=== PATIENT | female | born 1945 | race Caucasian/White ===

== ENCOUNTER → 2017-12-25 15:31 | Outpatient (CLI) | payer BC, SELFPAY | PROVIDERS: Family Provider Internal Medicine; PCP Internal Medicine; Visit Provider Family Medicine | DX: K59.00 Constipation, unspecified (principal); R10.9 Unspecified abdominal pain | CPT/HCPCS: 82274 ==

== ENCOUNTER 2018-01-05 07:05 | Day surgery (SDC) | payer BC, SELFPAY ==
[2018-01-05] VITALS (8 sets, daily range): BP systolic 86–117; BP diastolic 44–55; PULSE 63–81; RESP 16; TEMP 36.4–36.9; O2SAT 95–100; BMI 21.6
--- NOTE | 2018-01-05 | COLBX_PTH ---
PATIENT: JOSE LUIS STANFORD LOC: EN U#:[id number] AGE/SX: 72/F ROOM: RE01/05/[address]: Dr. Colton Wolfe MD : 1945 BED: DIS: 01/05/2018 SPEC #: [id number] RECD: 01/05/18 11:28 STATUS: HELIO PEACE #: [id number] KELLY: 01/05/18 00:[address]: Colton Wolfe DEPT: SURGICAL PATHOLOGY RECD BY: Brian Cannon ENTERED: 01/05/18 12:00 SP TYPE: COLON BX OTHR DR: Dr. Francy Regan MD Tissues: COLON BIOPSY Procedures: Surgery Specimen Level IV HEADER OPERATION: Colonoscopy PRE-OP DIAGNOSIS: Generalized abdominal pain TISSUE SUBMITTED: Left colonic biopsy MICROSCOPIC DIAGNOSIS Left colon, biopsy: Fragments of colonic mucosa with mild increase of intraepithelial lymphocytes consistent with microscopic (lymphocytic) colitis. SJ:satish 01/06/18 COMMENT Clinical correlation and appropriate follow up are necessary. Case has been reviewed in consultation with Dr. Preston who concurs with the above diagnosis. IDC:AM MICROSCOPIC DESCRIPTION Slides are reviewed. GROSS DESCRIPTION Received in fixative is one container labeled with the patient's name and designated left colonic biopsy. The specimen consists of multiple irregular fragments of light sanford soft tissue that in aggregate measure 1.2 x 0.6 x 0.1 cm. The specimen is totally submitted in one cassette. / SJ:rg 01/05/18 TC:3 CPT: 45205
--- NOTE | 2018-01-05 08:45 | PCM.OPRPT ---
Problem List (1) Screening for intestinal cancer Status: Acute (2) Abdominal pain Status: Acute Qualifiers: Abdominal location: left lower quadrant Qualified Code(s): R10.32 - Left lower quadrant pain Report of Operation Date of Procedure: 01/05/18 Pre-Operative Diagnosis: Screening for intestinal malignancy and left lower quadrant abdominal pain Post-Operative Diagnosis: Extraordinarily tortuous colon, no acute findings Surgery/Procedure Performed:: Colonoscopy with random left colonic biopsies Description of Surgical Findings:: Timeout and informed consent was obtained. 72-year-old female who is never had a previous colonoscopy was taken to the endoscopy suite. She was placed a left lateral decubitus position. Throughout the procedure in aliquots she received total 100 mg Demerol and 3.5 mg of Versed is intravenous sedation. Digital rectal exam performed. Normal at anal tone. Minimal hemorrhoidal changes. Flexible colonoscope inserted the rectum advanced through a very tortuous sigmoid and descending colon. The scope was then advanced through the transverse colon with transabdominal pressure slowly progressively advanced to the hepatic flexure. I was able then to transgress the hepatic flexure and gain access to the cecum. Bowel prep was good there is still liquid stool located throughout the colon which required constant aspiration. The cecum ileocecal valve however was nicely visualized. The scope was carefully withdrawn from the ascending transverse descending and sigmoid colon. There were no acute abnormalities noted other than a very tortuous colon. Particularly the left colon was carefully inspected. Random biopsies were obtained of the sigmoid and rectum. There was no evidence of acute inflammatory change. There is no visualized diverticular disease. The scope was retroflexed within the rectum anorectal verge inspected this also did not appear to be remarkable. Excess fluid and air was aspirated free the procedure was completed with the patient tolerating it well. The biopsies were performed with cold forceps Impression Very tortuous colon. No acute findings visualized. Biopsies from the sigmoid and rectum pending. Next screening colonoscopy in 10 years Etiology of the patient's left lower quadrant pain not determined on this examination and does not seem to be consistent with colonic pathology. Preoperative stool Hemoccult was negative for blood Cc: Dr. Alvarado Medications were given at 0818. Procedure started 0820. The cecum was reached at 0834.3. The procedure was completed at 0843. Colton Wolfe M.D., F.A.C.S. Type of Anesthesia:: IV Sedation
--- NOTE | 2018-01-05 09:28 | SUR.PHASEII ---
PT TO HAVE CT OF ABD AND PELVIS WITH IV AND ORAL CONTRAST, CT ABLE RADHA PT TODAY, SHE IS DRINKING CONTRAST DIRECTED
== END 2018-01-05 10:39 | disposition home or self-care (01) ==
LOC: EN 07:05 → AC 07:07
PROVIDERS: Family Provider Internal Medicine; PCP Internal Medicine; Visit Provider Surgery
PROC: 0DJD8ZZ Inspection of Lower Intestinal Tract, Via Natural or Artificial Opening Endoscopic (ICD-10-PCS; CPT 45378; principal; 2018-01-05 07:55)
DX: Z12.10 Encounter for screening for malignant neoplasm of intestinal tract, unspecified (principal); K52.832 Lymphocytic colitis; K56.2 Volvulus; R10.32 Left lower quadrant pain; L71.9 Rosacea, unspecified; H35.30 Unspecified macular degeneration; Z85.42 Personal history of malignant neoplasm of other parts of uterus; Z79.899 Other long term (current) drug therapy
CPT/HCPCS: 45380; 88305; 99152; 99153; J7030; J7120

== ENCOUNTER → 2018-01-05 10:41 | Outpatient (CLI) | payer BC, SELFPAY ==
--- NOTE | 2018-01-05 10:57 | CT_ITS ---
STUDY: CT ABDOMEN AND PELVIS WITHOUT CONTRAST REASON FOR EXAM: Female, 72 years old. Abdominal pain and bloating. RADIATION DOSAGE (If Supplied By Facility): CTDIvol = ( 9.08 ) mGy, DLP = ( 386.21 ) mGycm TECHNIQUE: Transaxial images were obtained from the dome of the diaphragm to the symphysis pubis without oral contrast, and without intravenous contrast. Sagittal and coronal images were reconstructed. Individualized dose optimization techniques were used for this CT. COMPARISON: None. FINDINGS: Minimal degree of increased linear markings at the lung bases suggestive of either mild linear scarring or linear atelectasis. The visualized portions of the heart are within normal limits. There is a 7.1 mm cyst in the anterior right lobe of the liver adjacent to the dome. Sludge and possible tiny gallstones within the gallbladder lumen. Normal spleen. There is a 1.6 cm x 1.9 cm x 1.8 cm hypodense rounded mass in the body of the pancreas. A neoplastic process should be ruled out. Normal bilateral adrenal glands. Normal right kidney. Normal left kidney. Normal visualized stomach. Normal small intestine. There is circumferential wall thickening of the rectum with narrowing of the lumen. Moderate amount of fecal material is seen in the colon. There is non-visualization of the appendix. Normal abdominal aorta. Normal inferior vena cava. Normal retroperitoneum. Normal urinary bladder. There is absence of the uterus consistent with a prior hysterectomy. Normal abdominal wall. There are diffuse degenerative changes of the visualized lumbar spine. Minimal anterior listhesis of L3 on L4. CT/Abdomen/Pelvis without Cont IMPRESSION: 1.6 cm x 1.9 cm x 1.8 cm hypodense mass in the body of the pancreas. A neoplastic process should be ruled out. Sludge and possible tiny gallstones within the gallbladder lumen. Circumferential wall thickening of the rectum. Electronically Signed: Corey Concepcion MD at 14:13 EDT Tel [phone], Service support ,
== END ==
PROVIDERS: Family Provider Internal Medicine; PCP Internal Medicine; Visit Provider Surgery
DX: K86.9 Disease of pancreas, unspecified (principal); K83.9 Disease of biliary tract, unspecified; K62.89 Other specified diseases of anus and rectum
CPT/HCPCS: 74176

== ENCOUNTER → 2018-01-07 15:06 | Outpatient (CLI) | payer BC, SELFPAY ==
--- NOTE | 2018-01-07 15:08 | BI_ITS ---
MAMMOGRAPHY - BILATERAL SCREENING REASON FOR EXAM: Female, 72 years old. Routine annual screening examination. PERTINENT HISTORY: Non-contributory. History of endometrial carcinoma. TECHNIQUE: Digital bilateral breast clementina (3D mammographic acquisition) in the CC and MLO projections. 2-D mediolateral oblique (MLO) and craniocaudad (CC) views of both breasts were obtained. CAD: Full Field Digital Mammography with Computer Added Detection was performed. COMPARISON: None. Baseline examination. FINDINGS: Breast Composition: The breasts are heterogeneously dense, which may obscure small masses. There are no dominant masses or suspicious calcifications. No other significant abnormalities are identified. BI/SCREENING MAMM (CAD), BILAT IMPRESSION: Negative screening mammogram. Yearly followup mammogram recommended. (A) ASSESSMENT CATEGORY: BIRADS Category 1: Negative. A letter regarding these results will be sent to the patient by the facility within 30 days. Approximately 10% of breast cancers are not detected by mammography. A normal mammogram should not delay biopsy of a clinically suspicious abnormality. [id number] Electronically Signed: Corey Concepcion MD at 8:05 EDT Tel [phone], Service support ,
== END ==
PROVIDERS: Family Provider Internal Medicine; PCP Internal Medicine; Visit Provider Obstetrics & Gynecology
DX: Z12.31 Encounter for screening mammogram for malignant neoplasm of breast (principal)
CPT/HCPCS: 77063; 77067

== ENCOUNTER → 2019-11-16 | Outpatient (CLI) | payer BC, SELFPAY | END | disposition home or self-care (01) | LOC: LABSPEC 15:41 | PROVIDERS: PCP Internal Medicine; Referring Provider Dermatology; Visit Provider Dermatology | DX: L30.8 Other specified dermatitis (principal); B95.61 Methicillin susceptible Staphylococcus aureus infection as the cause of diseases classified elsewhere; L40.0 Psoriasis vulgaris; L20.84 Intrinsic (allergic) eczema | CPT/HCPCS: 87070; 87077; 87186; 87205 ==

== ENCOUNTER → 2020-11-23 14:02 | Outpatient (CLI) | payer BC, SELFPAY ==
--- NOTE | 2020-11-23 15:09 | BI_ITS ---
MAMMOGRAPHY - BILATERAL SCREENING REASON FOR EXAM: Female, 75 years old. Routine annual screening examination. PERTINENT HISTORY: Non-contributory. TECHNIQUE: Digital bilateral breast stuart (3D mammographic acquisition) in the CC and MLO projections. 2-D mediolateral oblique (MLO) and craniocaudad (CC) views of both breasts were obtained. CAD: Full Field Digital Mammography with Computer Added Detection was performed. COMPARISON: Comparison is made with prior study dated 01/07/2018. FINDINGS: Breast Composition: The breasts are heterogeneously dense, which may obscure small masses. There are no dominant masses or suspicious calcifications. No other significant abnormalities are identified. There has been no significant change since the prior study. BI/SCRN MAMM (CAD)W/STUART BILAT IMPRESSION: Stable bilateral screening mammogram. Yearly follow-up mammogram recommended. (A) ASSESSMENT CATEGORY: BIRADS Category 1: Negative. A letter regarding these results will be sent to the patient by the facility within 30 days. Approximately 10% of breast cancers are not detected by mammography. A normal mammogram should not delay biopsy of a clinically suspicious abnormality. [id number] Electronically Signed: Corey Concepcion MD at 15:48 EST , Service support ,
== END ==
PROVIDERS: PCP Family Medicine; Referring Provider Registered Nurse; Visit Provider Registered Nurse
DX: Z12.31 Encounter for screening mammogram for malignant neoplasm of breast (principal)
CPT/HCPCS: 77063; 77067

== ENCOUNTER 2020-11-29 10:09 | Outpatient (RCR) | payer BC, SELFPAY ==
[2018-01-05 07:23] VITALS: BMI 21.6
[2020-11-29] MEDS: COVID-19 VACC, MRNA(PFIZER)/PF 30 MCG/0.3 ML SYRINGE IM (14:42)
[2021-01-10] MEDS: COVID-19 VACC, MRNA(PFIZER)/PF 30 MCG/0.3 ML SYRINGE IM ×2 (15:59→16:33)
== END 2020-11-29 23:59 ==
LOC: IMMUN 10:09
PROVIDERS: PCP Family Medicine; Referring Provider Family Medicine; Visit Provider Family Medicine
DX: Z23 Encounter for immunization (principal)
CPT/HCPCS: 0001A; 0002A; 91300

== ENCOUNTER → 2021-09-04 15:54 | Outpatient (CLI) | payer BC, SELFPAY ==
--- NOTE | 2021-09-04 16:00 | BD_ITS ---
STUDY: DUAL ENERGY X-RAY ABSORPTIOMETRY / DXA REASON FOR EXAM: Female, 76 years old. K52.9 TECHNIQUE: Bone Mineral Density (BMD) measurements of lumbar spine and bilateral hips were obtained. COMPARISON: None. FINDINGS: Lumbar Spine (L1-L4): g/cm2 (1.183) / T-score (1.2) / Z-score (3.7) Findings are suggestive of normal bone density with a low fracture risk. Left Femur Total: g/cm2 (1.020) / T-score (0.6) / Z-score (2.4) Left Femoral Neck: g/cm2 (0.943) / T-score (0.8) / Z-score (3.0) Right Femur Total: g/cm2 (0.954) / T-score (0.1) / Z-score (1.9) Right Femoral Neck: g/cm2 (0.843) / T-score (-0.1) / Z-score (2.1) BD/Dexa Bone Density Study IMPRESSION: The patient is considered normal as outlined below according to World Len Organization (WHO) criteria with a low fracture risk. Reference Information: The T-score is the number of standard deviations above or below the standard which is normal for young adults at their peak bone mineral density. The World Health Organization (WHO) interprets the T-scores as follows: Above -1 Normal bone density Between -1 and -2.5 Osteopenia Equal to / or below -2.5 Osteoporosis As a practical clinical guideline, osteopenia may be graded as follows: Mild -1 through -1.5 Moderate -1.6 through -2.0 Severe -2.1 through -2.4 The Z-score is the number of standard deviations above or below age-matched controls. A Z-score of less than -1.5 would be considered abnormal. References: 1. NIH Osteoporosis and Related Bone Diseases www osteo.org 2. International Society for Clinical Densitometry www iscd.org 3. National Osteoporosis Foundation www nof.org Electronically Signed: Corey Concepcion MD at 9:08 EST , Service support ,
== END ==
PROVIDERS: PCP Family Medicine; Visit Provider Internal Medicine Rheumatology
DX: M89.49 Other hypertrophic osteoarthropathy, multiple sites (principal); L40.50 Arthropathic psoriasis, unspecified; L40.9 Psoriasis, unspecified; K52.9 Noninfective gastroenteritis and colitis, unspecified; I73.00 Raynaud's syndrome without gangrene
CPT/HCPCS: 77080

== ENCOUNTER → 2022-08-28 | Outpatient (CLI) | payer BC, SELFPAY ==
--- NOTE | 2022-08-28 16:17 | BI_ITS ---
MAMMOGRAPHY - BILATERAL SCREENING REASON FOR EXAM: Female, 77 years old. Routine annual screening examination. PERTINENT HISTORY: Non-contributory. TECHNIQUE: Digital bilateral breast stuart (3D mammographic acquisition) in the CC and MLO projections. 2-D mediolateral oblique (MLO) and craniocaudad (CC) views of both breasts were obtained. CAD: Full Field Digital Mammography with Computer Added Detection was performed. COMPARISON: Comparison is made with prior examination of 11/23/2020 and 01/08/2008. FINDINGS: Breast Composition: The breasts are heterogeneously dense, which may obscure small masses. There are no dominant masses or suspicious calcifications. No other significant abnormalities are identified. There has been no significant change since the prior study. BI/SCRN MAMM (CAD)W/STUART BILAT IMPRESSION: Stable bilateral screening mammogram. Yearly follow-up mammogram recommended. (A) ASSESSMENT CATEGORY: BIRADS Category 1: Negative. A letter regarding these results will be sent to the patient by the facility within 30 days. Approximately 10% of breast cancers are not detected by mammography. A normal mammogram should not delay biopsy of a clinically suspicious abnormality. [id number] Electronically Signed: Corey Concepcion MD at 8:46 EST ,
== END | disposition home or self-care (01) ==
LOC: OPBI 16:13
PROVIDERS: PCP Family Medicine; Visit Provider Obstetrics & Gynecology
DX: Z12.31 Encounter for screening mammogram for malignant neoplasm of breast (principal)
CPT/HCPCS: 77063; 77067

== ENCOUNTER → 2023-01-06 | Outpatient (CLI) | payer BC, SELFPAY ==
--- NOTE | 2023-01-06 17:44 | STRESSREP ---
Stress Test Report Treadmill exercise stress test delete that. Indication; 77-year-old patient who had symptoms of chest pain Underwent treadmill stress test according to standard Juarez protocol. Stress protocol: Patient exercised according to standard Juarez protocol, for 2 minutes and 50 seconds. Achieving a work level of max METS 4.6. Resting heart rate of 70 bpm zhanna to a maximum heart rate of 144 bpm. This value represented 100% of the maximal age-predicted heart rate. The resting blood pressure of 112/66 mmHg, zhanna to a maximum blood pressure of 170 over 8058 mmHg. Exercise test was stopped due to target heart rate achieved and symptoms of dyspnea no symptoms of chest pain reported. EKG; Normal sinus rhythm Stress EKG showed[, no significant change from the resting EKG, with maximum heart rate of 107bpm. Arrhythmia: No arrhythmia demonstrated Symptoms: Patient had no symptoms of chest pain Blood pressure at rest: [132/62 blood pressure at the end of stress: 124/62] Myocardial perfusion protocol. [12 mCi ]of Technetium 99m Sestamibi was injected at rest. [ 0.4 mg ]of Regadenoson was infused per usual protocol peak infusion[34 mCi ]of Technetium 99m sestamibi was injected. Stress images were obtained stress and rest images were reconstructed and compared in the short axis vertical and horizontal long axis. Gated images were also obtained Perfusion SPECT analysis: Review of the images demonstrate normal uptake of sestamibi at rest, post stress images demonstrate similar uptake of sestamibi to the resting images, homogeneous tracer uptake With no evidence of reversible myocardial ischemia. Reduced tracer uptake in the inferior myocardium consistent with prior inferior [place]. Gated SPECT analysis: The gated ejection fraction is [ 88 %]. Wall motion showed hyperdynamic left ventricle. Conclusion: Negative Lexiscan sestamibi myocardial perfusion study for reversible myocardial ischemia Hyperdynamic left ventricle. Patient has no symptoms to report, in particular no chest pain Patient will be evaluated further with event monitor as an outpatient. Tequila Madrid MD,FACC,[facility]
--- NOTE | 2023-01-09 12:01 | STRESSREP ---
Stress Test Report Treadmill stress test. Indication 77-year-old female underwent regular treadmill stress test according to standard Juarez protocol. Stress protocol: Patient exercised according to standard Juarez protocol for 2 minutes and 50 seconds achieving a work level of maximum METS 4.6 Resting heart rate of 70 bpm, zhanna to a maximum heart rate of 144 bpm. This value represented 100% of the maximal age-predicted heart rate. The resting blood pressure of 112/66 mmHg. Zhanna to a maximum blood pressure of 170/58 mmHg. Exercise test was stopped due to target heart rate achieved and symptoms of dyspnea no symptoms of chest pain reported. EKG; resting EKG normal sinus rhythm Stress EKG showed no significant change from resting EKG with maximum heart rate of 107 bpm. Arrhythmia; no arrhythmia demonstrated. Symptoms patient had no symptoms of chest pain. Conclusion; Negative treadmill stress test for significant ischemia. Limited exercise tolerance. If clinically warranted would recommend pharmacological nuclear stress test Tequila Madrid MD,FACC,[id number]
== END | disposition home or self-care (01) ==
LOC: CVS 12:34
PROVIDERS: PCP Family Medicine; Referring Provider Physician Assistant; Visit Provider Physician Assistant
DX: R07.89 Other chest pain (principal)
CPT/HCPCS: 93017

== ENCOUNTER → 2023-09-09 | Outpatient (CLI) | payer BC, SELFPAY ==
--- NOTE | 2023-09-09 14:39 | BI_ITS ---
MAMMOGRAPHY - BILATERAL SCREENING REASON FOR EXAM: Female, 78 years old. Routine annual screening examination. PERTINENT HISTORY: Non-contributory. TECHNIQUE: Digital bilateral breast stuart (3D mammographic acquisition) in the CC and MLO projections. 2-D mediolateral oblique (MLO) and craniocaudad (CC) views of both breasts were obtained. CAD: Full Field Digital Mammography with Computer Added Detection was performed. COMPARISON: Comparison is made with prior study dated August 28, 2022 and November 23, 2020. FINDINGS: Breast Composition: The breasts are heterogeneously dense, which may obscure small masses. There are no dominant masses or suspicious calcifications. Stable calcified nodules in the retroareolar region of the left breast as well as in the central portion of the right breast. No other significant abnormalities are identified. There has been no significant change since the prior study. BI/SCRN MAMM (CAD)W/STUART BILAT IMPRESSION: Stable bilateral screening mammogram. Yearly follow-up mammogram recommended. (A) ASSESSMENT CATEGORY: BIRADS Category 2: Benign. A letter regarding these results will be sent to the patient by the facility within 30 days. Approximately 10% of breast cancers are not detected by mammography. A normal mammogram should not delay biopsy of a clinically suspicious abnormality. [id number] Electronically Signed: Corey Concepcion MD at 15:20 EST ,
== END | disposition home or self-care (01) ==
LOC: OPBI 14:38
PROVIDERS: PCP Family Medicine; Referring Provider Obstetrics & Gynecology; Visit Provider Obstetrics & Gynecology
DX: Z12.31 Encounter for screening mammogram for malignant neoplasm of breast (principal)
CPT/HCPCS: 77063; 77067

== ENCOUNTER → 2024-10-28 | Outpatient (CLI) | payer BC, SELFPAY ==
--- NOTE | 2024-10-28 15:50 | BI_ITS ---
PROCEDURE: SCRN MAMM (CAD)W/STUART BILAT REASON FOR EXAM: F, Age 79 y/o, no family history. Routine annual follow-up. TECHNIQUE: Bilateral screening digital breast tomosynthesis with 2D and 3D images. Computer aided detection. COMPARISON: Prior exam(s) dating back to September 09, 2023.. FINDINGS: The breasts are heterogeneously dense which may obscure small masses. Stable examination. No suspicious masses, areas of developing architectural distortion, or suspicious calcifications. BI/SCRN MAMM (CAD)W/STUART BILAT IMPRESSION: BI-RADS 2: BENIGN. RECOMMEND ANNUAL MAMMOGRAPHIC SCREENING. Follow-up code: Routine Follow-up The patient will be notified of the results by letter. Reading Location: [place] [address]
== END | disposition home or self-care (01) ==
LOC: OPBI 15:48
PROVIDERS: PCP Family Medicine; Referring Provider Obstetrics & Gynecology; Visit Provider Obstetrics & Gynecology
DX: Z12.31 Encounter for screening mammogram for malignant neoplasm of breast (principal)
CPT/HCPCS: 77063; 77067